=== PATIENT | male | born 1990 | race African-American/Black ===

== ENCOUNTER 2019-05-04 18:43 | Emergency (ER) | payer OTHER ==
[2019-05-04 18:59] VITALS: BMI 29.9
[2019-05-04] MEDS ORDERED: ACETAMINOPHEN 500 MG TABLET (FP) PO ONE (20:42)
[2019-05-04] MEDS ORDERED: ACETAMINOPHEN 325 MG TABLET (FP) ONE (20:47)
--- NOTE | 2019-05-04 22:07 | PDOC ---
History of Present Illness - General History Source: Patient Exam Limitations: No Limitations - History of Present Illness Initial Comments: 05/04/19 21:55 Patient is a 28 yr old male with no pmhx c/o fever and cough 4 days. States 5 days had body ache, was tired was mostly sleeping, then dry coughing the next day, fever x 2 days. States not getting enough sleep due to the coughing. Childhood vaccines are UTD. Went to [facility], Flu test was neg, was given a cough meds with minimal relief. He was instructed the if the symptoms did not improve to come back or go to ED. States today cough more and had discomfort in the chest with cough. Today had white phlegm. Denies any sob. He has been taking motrin 200mg last dose 5:41 pm. No recent travel. FamHx neg for DVT/PE. PMD: [facility] PMHX: neg PSOCHX: neg vaping, neg cig, neg drug, occ etoh ALL: NKDA Review of Systems: GENERAL/CONSTITUTIONAL: (+) fever (-) chills. No weakness. No weight change. HEAD, EYES, EARS, NOSE AND THROAT: No change in vision. No ear pain or discharge. No sore throat. CARDIOVASCULAR: No chest pain or shortness of breath. RESPIRATORY: (+) cough, (-) wheezing, or hemoptysis. GASTROINTESTINAL: No nausea, vomiting, diarrhea or constipation. No rectal bleeding. GENITOURINARY: No dysuria, frequency, or change in urination. MUSCULOSKELETAL: No joint or muscle swelling or pain. No neck or back pain. SKIN AND BREASTS: No rash or easy bruising. NEUROLOGIC: No headache, vertigo, loss of consciousness, or loss of sensation. PSYCHIATRIC: No depression or anxiety. ENDOCRINE: No increased thirst. No abnormal weight change. HEMATOLOGIC/LYMPHATIC: No anemia, easy bleeding, or history of blood clots. ALLERGIC/IMMUNOLOGIC: No hives or skin allergy. No latex allergy. GENERAL: [The patient is awake, alert, and fully oriented, in no mild distress, coughing intermittently.] HEAD: [Normal with no signs of trauma.] EYES: [Pupils equal, round and reactive to light, extraocular movements intact, sclera anicteric, conjunctiva clear.] ENT: [Ears normal, nares patent, oropharynx clear without exudates. Moist mucous membranes.] NECK: [Normal range of motion, supple without lymphadenopathy, JVD, or masses.] LUNGS: [Breath sounds equal, clear to auscultation bilaterally. No wheezes, and no crackles.] HEART: [Regular rate and rhythm, normal S1 and S2 without murmur, rub.] ABDOMEN: [Soft, nontender, normoactive bowel sounds. No guarding, no rebound. No masses.] EXTREMITIES: [Normal range of motion, no edema. No clubbing or cyanosis. No cords, erythema, or tenderness.] NEUROLOGICAL: [Cranial nerves II through XII grossly intact. Normal speech, normal gait.] PSYCH: [Normal mood, normal affect.] SKIN: [Warm, Dry, normal turgor, no rashes or lesions noted.] <Mickey Hung - Last Filed: 05/05/19 03:02> <Maxi Moore - Last Filed: 05/06/19 18:05> - General Chief Complaint: Respiratory Stated Complaint: FLU LIKE SYMPTOMS Time Seen by Provider: 05/04/19 19:22 Past History - Past Medical History COPD: No - Psycho Social/Smoking Cessation Hx Smoking History: Never smoked <Mickey Hung - Last Filed: 05/05/19 03:02> <Maxi Moore - Last Filed: 05/06/19 18:05> - Past Medical History Allergies/Adverse Reactions: Allergies Allergy/AdvReac Type Severity Reaction Status Date / Time No Known Allergies Allergy Verified 05/04/19 18:59 Home Medications: Ambulatory Orders Azithromycin [Zithromax -] 250 mg PO DAILY #4 tablet 05/04/19 Albuterol Sulfate Inhaler - [Ventolin HFA Inhaler -] 2 inh PO Q4H #1 inh Promethazine HCl [Phenergan Liquid -] 5 ml PO TID #120 ml 05/05/19 *Physical Exam - Vital Signs Last Vital Signs Temp Pulse Resp BP Pulse Ox 102.9 F H 119 H 20 127/70 99 05/04/19 18:56 05/04/19 18:56 05/04/19 18:56 05/04/19 18:56 05/04/19 18:56 <Mickey Hung - Last Filed: 05/05/19 03:02> - Vital Signs Last Vital Signs Temp Pulse Resp BP Pulse Ox 99.7 F H 95 H 18 129/80 96 05/05/19 00:25 05/05/19 00:25 05/05/19 00:25 05/05/19 00:25 05/05/19 00:25 <Maxi Moore - Last Filed: 05/06/19 18:05> ED Treatment Course - Medications Given in the ED: ED Medications Discontinued Medications Generic Name Dose Route Start Last Admin Trade Name Freq PRN Reason Stop Dose Admin Acetaminophen 975 mg 05/04/19 20:42 05/04/19 20:44 Tylenol - PO 05/04/19 20:43 975 mg ONCE ONE Administration <Mickey Hung - Last Filed: 05/05/19 03:02> - Medications Given in the ED: ED Medications Discontinued Medications Generic Name Dose Route Start Last Admin Trade Name Freq PRN Reason Stop Dose Admin Acetaminophen 975 mg 05/04/19 20:42 05/04/19 20:44 Tylenol - PO 05/04/19 20:43 975 mg ONCE ONE Administration Albuterol/Ipratropium 1 amp 05/04/19 22:09 05/04/19 22:20 Duoneb - NEB 05/04/19 22:10 1 amp ONCE ONE Administration Azithromycin 500 mg 05/05/19 00:29 05/05/19 00:51 Zithromax - PO 05/05/19 00:30 500 mg ONCE ONE Administration Ibuprofen 600 mg 05/04/19 22:08 05/04/19 22:20 Motrin - PO 05/04/19 22:09 600 mg ONCE ONE Administration Promethazine HCl/Dextromethorphan 10 ml 05/05/19 00:31 05/05/19 00:51 Phenergan-Dm Syrup - PO 05/05/19 00:32 Not Given ONCE ONE <Maxi Moore - Last Filed: 05/06/19 18:05> Medical Decision Making - Medical Decision Making 05/04/19 21:55 Patient is a 28 yr old male with no pmhx c/o fever and cough 4 days. States 5 days had body ache, was tired was mostly sleeping, then dry coughing the next day, fever x 2 days. States not getting enough sleep due to the coughing. Childhood vaccines are UTD. Went to [facility], Flu test was neg, was given a cough meds with minimal relief. He was instructed the if the symptoms did not improve to come back or go to ED. States today cough more and had discomfort in the chest with cough. Today had white phlegm. Denies any sob. He has been taking motrin 200mg last dose 5:41 pm. No recent travel. FamHx neg for DVT/PE. Symptoms consistent with flulike illness however since patient had a negative strep at [facility] yesterday we will repeat today and get a chest x-ray. Patient coughing will give neb treatments see if he has symptomatic improvement. Checks x-ray reviewed noted left lower lobe pneumonia Zithromax 500 mg p.o. EKG check for prolonged QT EKG: SR at rate 80, normal axis deviation, no ST-T wave changes, QTC 410 Selected Entries 05/05/19 00:25 Temperature 99.7 F H Pulse Rate [ 95 H Radial] Respiratory 18 Rate Blood Pressure 129/80 [Right Arm] O2 Sat by Pulse 96 Oximetry (%) I discussed the physical exam findings, ancillary test results and final diagnoses with the patient. I answered all of the patient's questions. The patient was satisfied with the care received and felt comfortable with the discharge plan and treatment plan. The Patient agrees to follow up with the primary care physician within 24-72 hours. <Mickey Hung - Last Filed: 05/05/19 03:02> - Medical Decision Making The patient was seen and evaluated in conjunction with HAWA Ji under my direct supervision, ancillary studies were reviewed. I independently interviewed and evaluated the patient and I agree with the plan as outlined by HAWA Ji. <Maxi Moore - Last Filed: 05/06/19 18:05> Discharge - Discharge Information Problems reviewed: Yes <Mickey Hung - Last Filed: 05/05/19 03:02> <Maxi Moore - Last Filed: 05/06/19 18:05> - Discharge Information Clinical Impression/Diagnosis: Pneumonia Qualifiers: Pneumonia type: due to unspecified organism Laterality: left Lung location: lower lobe of lung Qualified Code(s): J18.9 - Pneumonia, unspecified organism Condition: Stable Disposition: HOME - Additional Discharge Information Prescriptions: Albuterol Sulfate Inhaler - [Ventolin HFA Inhaler -] 2 inh PO Q4H #1 inh Azithromycin [Zithromax -] 250 mg PO DAILY #4 tablet Promethazine HCl [Phenergan Liquid -] 5 ml PO TID #120 ml - Patient Discharge Instructions Patient Printed Discharge Instructions: DI for Pneumonia -- Adult Additional Instructions: Your Discharge Instructions: You must call primary care physician within 24 hours to arrange follow-up. Return to the Emergency Department with any new, persistent or worsening symptoms, for fever, chills, SOB, dizziness or any other concerning changes that may occur. Continue Tylenol every 4 hours and Motrin every 6 hours for fever and pain. Drink lots of fluids. Get some rest. - Post Discharge Activity Work/Back to School Note: Back to Work
[2019-05-04] MEDS ORDERED: IBUPROFEN 600 MG TABLET (FP) PO ONE ×2 (22:08→22:19)
[2019-05-04] MEDS ORDERED: ALBUTEROL SO4 2.5/IPRATROPIUM 0.5 INH SOL 3 ML VIAL.NEB. NEB ONE (22:09)
[2019-05-05 00:27] VITALS: BP 129/80; PULSE 95; TEMP 99.7
[2019-05-05] MEDS ORDERED: AZITHROMYCIN 250 MG TABLET PO ONE (00:29)
[2019-05-05] MEDS ORDERED: DEXTROMETHORPHAN/PROMETHAZINE 15 MG/6.25 MG/5 ML SYRUP PO ONE (00:31)
[2019-05-05] MEDS ORDERED: AZITHROMYCIN 500 MG TABLET ONE (00:35)
--- NOTE | 2019-05-05 11:28 | EKG ---
Test Reason : Blood Pressure : / mmHG Vent. Rate : 080 BPM Atrial Rate : 080 BPM P-R Int : 130 ms QRS Dur : 078 ms QT Int : 356 ms P-R-T Axes : 066 020 020 degrees QTc Int : 410 ms NORMAL SINUS RHYTHM WITH SINUS ARRHYTHMIA POSSIBLE LEFT ATRIAL ENLARGEMENT BORDERLINE ECG NO PREVIOUS ECGS AVAILABLE Confirmed by JESSENIA CRAFT, VAISHNAVI ([id number]) on 05/05/2019 11:27:54 AM Referred By: Confirmed By:VAISHNAVI RUELAS MD
== END 2019-05-05 00:45 | disposition home or self-care (01) ==
LOC: JERFT 18:43 → JER 18:43
PROC: 3E0F7GC Introduction of Other Therapeutic Substance into Respiratory Tract, Via Natural or Artificial Opening (ICD-10-PCS; principal; 2019-05-04)
DX: J18.9 Pneumonia, unspecified organism (principal)
CPT/HCPCS: 71046-TC-FY; 87804; 93005; 93010; 99282-25